=== PATIENT | female | born 1970 | race Caucasian/White ===

== ENCOUNTER 2021-01-13 00:17 | Emergency (ER) | payer OTHER ==
[2021-01-13] MEDS ORDERED: PERCOCET 5-3251 EACH PO (05:37)
[2021-01-13] MEDS ORDERED: ROBAXIN500 MG PO (05:37)
[2021-01-13] MEDS ORDERED: MEDROL 4MG DOSEP4 MG PO (05:37)
[2021-01-13] MEDS ORDERED: IBUPROFEN800 MG PO (05:37)
== END 2021-01-13 05:47 | disposition home or self-care (01) ==
LOC: FER 00:17
DX: S30.0XXA Contusion of lower back and pelvis, initial encounter (principal); F17.210 Nicotine dependence, cigarettes, uncomplicated; W17.89XA Other fall from one level to another, initial encounter
CPT/HCPCS: 72192; 72220; J1100; J1885